=== PATIENT | male | born 1980 | race Caucasian/White ===

== ENCOUNTER 2016-06-03 10:21 | Emergency (ER) | payer OTHER ==
[~2016-06-03 10:21] MED LIST: FLAGYL500 MG PO; LEVAQUIN500 MG PO; NEURONTIN300 MG PO; OXYCODONE/ACETA1 TA1 PO; PERCOCET1 TA1 PO; SENOKOT8.6 MG PO
--- NOTE | 2016-06-03 11:41 | DIAGNOSTIC IMAGING REPORT ---
PROCEDURE: XR CERVICAL SPINE 2 OR 3 VIEW INDICATION: NECK PAIN TECHNIQUE: Three views. COMPARISON: None available FINDINGS: Status post fusion from C5 five through C7. There is spondylosis and a posterior osteophytic ridge at C3-4 and C4-5. Greater at the C4-5 level. IMPRESSION: 1. Spondylosis and osteophytic ridge formation at C4-5 following fusion of the C5, C6 and C7
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
--- NOTE | 2016-06-03 13:05 | ED ORDER SUMMARY ---
..... Patient: ANGELO CASTREJON OrderSheet [facility] VisitID: [id number] [address] [place] [address] 35y, M Registration Date/Time: 06/03/2016 ORDER SHEET Weight: 79.3 kg (stated) Allergies: No Known Drug Allergy GENERAL ORDERS: Cervical Spine 2 or 3V Urgent (11:11 06/03/2016 Marcelino Mckeon) (Ack 11:15 Osmar) (12:39 John Esteves.NBianka) MEDICATION ORDERS: Toradol IM 60 mg (NOW) (11:11 06/03/2016 Marcelino Mckeon) (11:20 Camacho Hastings) IV FLUIDS: ORDER SHEET NOTES: [Electronically signed by Jennifer Gross R.N. (13:21 06/03/2016)] [Electronically signed by Kenji Bernstein Dr. (08:50 06/04/2016)] [Electronically locked/signed by Jennifer Gross R.N. (13:21 06/03/2016)]
--- NOTE | 2016-06-03 13:05 | ED ORDER SUMMARY ---
..... Patient: ANGELO CASTREJON OrderSheet [facility] VisitID: [id number] [address] [place] [address] 35y, M Registration Date/Time: 06/03/2016 ORDER SHEET Weight: 79.3 kg (stated) Allergies: No Known Drug Allergy GENERAL ORDERS: Cervical Spine 2 or 3V Urgent (11:11 06/03/2016 Marcelino Mckeon) (Ack 11:15 Osmar) (12:39 John Esteves.NBianka) MEDICATION ORDERS: Toradol IM 60 mg (NOW) (11:11 06/03/2016 Marcelino Mckeon) (11:20 Camacho Hastings) IV FLUIDS: ORDER SHEET NOTES: [Electronically signed by Jennifer Gross R.N. (13:21 06/03/2016)] [Electronically signed by Kenji Bernstein Dr. (08:50 06/04/2016)] [Electronically locked/signed by Jennifer Gross R.N. (13:21 06/03/2016)]
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
--- NOTE | 2016-06-04 08:50 | ED DISCHARGE INSTRUCTIONS ---
Patient: ANGELO CASTREJON General Instructions [facility] VisitID: [id number] [address] [place] [address] 35y, M Registration Date/Time: 06/03/2016 Acute neck pain associated with cervical strain. No neuro deficit. INSTRUCTIONS Do not work today, tomorrow. Prescription Medications: Baclofen 20 mg: take 1 orally every 8 hours. Dispense thirty (30). No refills. Diclofenac 50 mg tablets: take 1 tablet orally every 8 hours as needed for pain. Dispense thirty (30). No refill. Follow-up: Follow up with your doctor tomorrow. Call for an appointment. Screening today revealed the patient's blood pressure to be in the normal range. ADDITIONAL INFORMATION Neck Pain [No Trauma] There are several possible causes of neck pain without injury: You can get a minor ligament sprain or muscle strain from a sudden minor neck movement. Sleeping with your neck in an awkward position can also cause this. Some persons respond to emotional stress by tensing the muscles of their neck, shoulders and upper back. Chronic spasm in these muscles can cause neck pain and sometimes headaches. Gradualwear and tearof the joints in the spine can cause degenerative arthritis.This can be a source of occasional or chronic neck pain. With aging or repeated small injuries to the neck, the spinal disks (the cushions between each spinal bone) may bulge and put pressure on a nearby spinal nerve. This causes tingling, pain or numbness spreading from the neck to the shoulder, arm or hand on one side. Acute neck pain usually gets better in one to two weeks. Neck pain related to disk disease, arthritis in the spinal joints or spinal stenosis (narrowing of the spinal canal) can become chronic and last for months or years. Unless you had a forceful physical injury (for example, a car accident or fall), X-rays are usually not ordered for the initial evaluation of neck pain. If pain continues and does not respond to medical treatment, x-rays and other tests may be performed at a later time. Home Care: Rest and relax the muscles. Use a comfortable pillow that supports the head and keeps the spine in a neutral position. The position of the head should not be tilted forward or backward. A rolled up towel may help for a custom fit. Some persons find relief with heat (hot shower, hot bath or heating pad) and massage, while others prefer cold packs (crushed or cubed ice in a plastic bag, wrapped in a towel) . Try both and use the method that feels best for 20 minutes several times a day. You may use acetaminophen (Tylenol) or ibuprofen (Motrin, Advil) to control pain, unless another medicine was prescribed. [ NOTE : If you have chronic liver or kidney disease or ever had a stomach ulcer or GI bleeding, talk with your doctor before using these medicines.] Follow Up with your physician or this facility if your symptoms do not show signs of improvement after one week. Physical therapy or further tests may be needed. [NOTE: A radiologist will review any X-rays or CT scans that were taken. We will notify you of any new findings that may affect your care.] Get Prompt Medical Attention if any of the following occur: Pain becomes worse or spreads into one or both arms Weakness or numbness in one or both arms Increasing headache Neck swelling, difficulty or painful swallowing Fever of 100.4F (38C) or higher, or as directed by your healthcare provider You have been given the following additional information: Neck Pain, No Trauma Do not work today, tomorrow. (Electronically signed by Kenji Bernstein Dr. 06/04/2016 8:50)
--- NOTE | 2016-06-04 08:50 | ED MED RECONCILIATION SUMMARY ---
Patient: ANGELO CASTREJON Medication Reconciliation Report [facility] VisitID: [id number] [address] [place] [address] 35y, M Registration Date/Time: 06/03/2016 Weight: 79.3 kg Height/Length: 69 in. BMI: 25.8 ALLERGIES: No Known Drug Allergy The patient's Home Medications are listed below: NONE. The source(s) of the original Home Medication information: patient The following Medications were given to the patient in the Emergency Department: Toradol [IM] IM 60 mg, administered: 06/03/2016 11:20:00 AM The following Medications were prescribed to the patient: Baclofen 20 mg: take 1 orally every 8 hours. Dispense thirty (30). No refills. -- Kenji Bernstein Dr. Diclofenac 50 mg tablets: take 1 tablet orally every 8 hours as needed for pain. Dispense thirty (30). No refill. -- Kenji Bernstein Dr.
--- NOTE | 2016-06-04 08:50 | ED MAR SUMMARY ---
..... Medication Administration Record [address] [place] [address] Patient: ANGELO CASTREJON Visit ID: [id number] 35y, M Weight: 79.3 kg Height/Length: 69 in BMI: 25.8 ALLERGIES: No Known Drug Allergy Given 11:20 06/03/2016 Larry Reyez R.N. Medication Administered: TORADOL [IM] (KETOROLAC TROMETHAMINE), Dose: 60 mg IM. Medication Ordered: Toradol IM 60 mg (NOW).
--- NOTE | 2016-06-04 08:50 | ED MAR SUMMARY ---
..... Medication Administration Record [address] [place] [address] Patient: ANGELO CASTREJON Visit ID: [id number] 35y, M Weight: 79.3 kg Height/Length: 69 in BMI: 25.8 ALLERGIES: No Known Drug Allergy Given 11:20 06/03/2016 Larry Reyez R.N. Medication Administered: TORADOL [IM] (KETOROLAC TROMETHAMINE), Dose: 60 mg IM. Medication Ordered: Toradol IM 60 mg (NOW).
--- NOTE | 2016-06-04 08:50 | ED MED RECONCILIATION SUMMARY ---
Patient: ANGELO CASTREJON Medication Reconciliation Report [facility] VisitID: [id number] [address] [place] [address] 35y, M Registration Date/Time: 06/03/2016 Weight: 79.3 kg Height/Length: 69 in. BMI: 25.8 ALLERGIES: No Known Drug Allergy The patient's Home Medications are listed below: NONE. The source(s) of the original Home Medication information: patient The following Medications were given to the patient in the Emergency Department: Toradol [IM] IM 60 mg, administered: 06/03/2016 11:20:00 AM The following Medications were prescribed to the patient: Baclofen 20 mg: take 1 orally every 8 hours. Dispense thirty (30). No refills. -- Kenji Bernstein Dr. Diclofenac 50 mg tablets: take 1 tablet orally every 8 hours as needed for pain. Dispense thirty (30). No refill. -- Kenji Bernstein Dr.
== END 2016-06-03 13:10 | disposition home or self-care (01) ==
LOC: ED SRH 10:21
DX: S16.1XXA Strain of muscle, fascia and tendon at neck level, initial encounter (principal); X58.XXXA Exposure to other specified factors, initial encounter; Y99.9 Unspecified external cause status; Y93.9 Activity, unspecified; Y92.9 Unspecified place or not applicable; F17.210 Nicotine dependence, cigarettes, uncomplicated